=== PATIENT | male | born 1970 | race Caucasian/White ===

== ENCOUNTER 2022-04-26 08:45 | Emergency (ER) | payer OTHER, SELFPAY ==
[2022-04-26 08:47] VITALS: BP 161/75; PULSE 71; RESP 18; TEMP 36.6; O2SAT 100; BMI 33.7
--- NOTE | 2022-04-26 08:52 | ED.RN ---
DR. KRUEGER INFORMED OF PT SX OF ALTERED LOC. PER PT STILL NOT ACTING RIGHT. MD REPORTS PT WILL BE SEEN.
--- NOTE | 2022-04-26 09:00 | EX.ED.DYSGE1 ---
HPI History of Present Illness Chief Complaint: Alt LOC Informant: patient and spouse/S.O. Onset/Context/Timing Onset: Today Context: Sudden Onset Timing: Continuous and Lasts (30 minutes) Quality: Unresponsive Location: Generalized Worsened by: Stress Relieved by: Nothing Narrative Narrative: Patient presents with syncopal episode that occurred this morning. Patient was laying on the kitchen floor. states patient was unresponsive for approximately 30 minutes. states patient has been under a lot of stress recently. Patient states this came on suddenly. Patient admits to some chest pain and palpitations. Patient denies any shortness of breath or cough. Patient denies any nausea or vomiting. Patient denies any headaches or weakness. [facility] Medical History TIA (transient ischemic attack) Home Medications atorvastatin 10 mg tablet (Lipitor) 10 mg PO DAILY 04/26/22 [History Last Taken Unknown] coenzyme Q10 100 mg capsule (CoQ-10) 0 mg PO DAILY 04/26/22 [History Last Taken Unknown] Allergy/AdvReac Type Severity Reaction Status Date / Time No Known Allergies Allergy Verified 04/26/22 08:46 Social History Smoking Status: Current every day smoker tobacco type: cigarettes ROS ROS ED Constitutional Constitutional ED: Denies chills or fever(s) Eyes Eyes: Denies blurry vision or change in vision ENT ENT ED: Denies rhinorrhea or sore throat Cardiovascular Cardiovascular: Reports chest pain and palpitations Respiratory/Chest Respiratory/Chest: Denies cough or dyspnea Gastrointestinal Gastrointestinal: Denies nausea or vomiting Genitourinary Genitourinary ED: Denies dysuria or hematuria Musculoskeletal Musculoskeletal: Reports neck pain; Denies back pain Integumentary Denies abscess or rash Neurologic Neurologic: Denies headache(s) or weakness Allergic/Immunologic Allergic/Immunologic ED: Denies mouth swelling or urticaria EXAM Physical Exam Const Vital Signs: 04/26/22 08:47 04/26/22 09:25 04/26/22 10:11 Temperature 97.9 F Temperature Source Temporal Pulse Rate 71 65 Respiratory Rate 18 18 Respiratory Effort Normal Respiratory Pattern Normal Blood Pressure 161/75 H 144/90 H Blood Pressure Mean 103 108 Pulse Ox 100 97 Oxygen Delivery Method Room Air Room Air 04/26/22 11:27 Temperature Temperature Source Pulse Rate 65 Respiratory Rate 16 Respiratory Effort Respiratory Pattern Blood Pressure 138/88 H Blood Pressure Mean 104 Pulse Ox 97 Oxygen Delivery Method Room Air Positive well nourished and well developed General Appearance ED: well developed and NAD HEENT Reports moist mucous membranes Neck supple and no JVD Resp normal respiratory effort and clear to auscultation bilaterally Cardio regular rate, regular rhythm and no murmurs GI normal to inspection, nondistended, normoactive bowel sounds and non-tender Palpation: soft Extremity normal to inspection General Extremety ED: Negative for edema or tenderness General Extremity: Negative for edema Neuro CN's II-XII intact bilaterally and no sensory deficits noted Neuro Narrative: Is a wake and alert and answers questions appropriately. Patient is somewhat somnolent on examination however. Sensorium / Orientation: alert Motor Exam: general weakness Psych mental status grossly normal Skin no rashes or lesions noted MDM MDM MDM Narrative Medical decision making narrative: Patient was given IV fluids. EKG was obtained. On my interpretation, it showed a normal sinus rhythm with a rate of 64. ND interval, QRS interval, and QTc intervals were all normal. [place] was normal. There are no acute ST or T wave changes. CBC was within normal limits. Comprehensive metabolic profile was within normal limits. Glucose was normal. PT was INR and PTT were within normal limits. Lactate was normal. High-sensitivity troponin was normal at 6. 2-hour repeat high-sensitivity troponin was also normal at 6. Arterial blood gas was obtained and was within normal limits. CT scan of the brain was obtained. There is no acute intracranial abnormality. This was interpreted by the radiologist and reviewed by myself. Portable 1 view chest x-ray was obtained. On my interpretation, lung [place] are clear. There is normal cardiac silhouette. Bony thorax is normal. There is no acute process noted. Radiologist also interpreted the x-ray and agrees. COVID-19 rapid antigen was obtained and was negative. Influenza A and influenza B antigens were obtained and were negative. Patient is more awake and alert. Patient knows where he is at, the day, date, year. Patient wants to go home. Patient was instructed to drink plenty of fluids. Patient was instructed to follow-up with his primary care physician in 5 to 7 days for reevaluation. Patient understood and was agreeable with the plan. All questions were answered. Lab Data Attestation: I reviewed the patient's lab results. Labs: Laboratory Results - last 24 hr 04/26/22 04/26/22 04/26/22 08:45 08:45 08:45 WBC 5.6 RBC 5.17 Hgb 15.1 Hct 42.8 MCV 82.8 MCH 29.2 MCHC 35.3 RDW Std Deviation 38.6 RDW Coeff of Dickson 12.8 Plt Count 191 MPV 8.6 Immature Gran % (Auto) 0.400 Neut % (Auto) 60.4 Lymph % (Auto) 25.9 [place] % (Auto) 11.0 H Eos % (Auto) 1.8 Baso % (Auto) 0.5 Absolute Neuts (auto) 3.4 Absolute Lymphs (auto) 1.44 Nucleated RBC % 0 PT 13.2 INR 1.0 APTT 26.7 Sodium 139 Potassium 3.6 Chloride 108 H Carbon Dioxide 25.0 Anion Gap 6 BUN 11 Creatinine 0.89 Estim Creat Clear Calc 103.41 Est GFR (MDRD) Af Amer 116 Est GFR (MDRD) Non-Af 96 BUN/Creatinine Ratio 12.4 Glucose 129 H Lactic Acid Calcium 8.3 L Total Bilirubin 0.40 AST 15 ALT 27 Alkaline Phosphatase 62 Troponin I High Sens 6 Total Protein 6.4 Albumin 3.6 Globulin 2.8 Albumin/Globulin Ratio 1.3 04/26/22 04/26/22 09:15 11:22 WBC RBC Hgb Hct MCV MCH MCHC RDW Std Deviation RDW Coeff of Dickson Plt Count MPV Immature Gran % (Auto) Neut % (Auto) Lymph % (Auto) [place] % (Auto) Eos % (Auto) Baso % (Auto) Absolute Neuts (auto) Absolute Lymphs (auto) Nucleated RBC % PT INR APTT Sodium Potassium Chloride Carbon Dioxide Anion Gap BUN Creatinine Estim Creat Clear Calc Est GFR (MDRD) Af Amer Est GFR (MDRD) Non-Af BUN/Creatinine Ratio Glucose Lactic Acid 1.4 Calcium Total Bilirubin AST ALT Alkaline Phosphatase Troponin I High Sens 6 Total Protein Albumin Globulin Albumin/Globulin Ratio ABG Data ABG results: ABG 04/26/22 09:33 Specimen Type ART Sample Site R Radial pH 7.39 Bicarbonate Actual 24.0 Total CO2 25 Base Excess -1 O2 Saturation 95 O2 % 21 ABG pCO2 39.4 ABG pO2 77 Kevin Test Positive O2 Delivery Device Room Air Radiography Chest X-Ray - ED: 1 View, Read by ED Physician, Read by Radiologist and No Acute Disease Diagnostic Testing: Clinical Impression(s) from Imaging Studies Brain CT 04/26/22 09:04 IMPRESSION: No acute intracranial process. Electronically Signed: Andie Sparks MD at 10:00 EST , Chest X-Ray 04/26/22 09:53 IMPRESSION: No radiographic evidence of acute cardiopulmonary disease. Electronically Signed: Andie Sparks MD at 10:02 EST , EKG Initial EKG: Attestation: I personally reviewed and interpreted this EKG as follows: Interpretation: Sinus Rhythm (64) and No Acute Injury Pattern Prior EKG tracings: not available for review Prior: No Prior Discharge Plan Triage Chief Complaint: Alt LOC ED Provider: Cipriano Dowd Dx/Rx/DC Orders Clinical Impression: Syncope, Confusion Instructions: ED Fainting, Uncertain Cause Prescriptions: No Action atorvastatin [Lipitor] 10 mg Tablet 10 mg PO DAILY coenzyme Q10 [CoQ-10] 100 mg Capsule 0 mg PO DAILY Rx Instructions: UNSURE OF DOSAGE. Primary Care Provider: Poncho Finney Referrals: Poncho Finney MD [Primary Care Provider] - 3-5 Days NOT,DEFINED [Non-Staff] - Disposition Disposition: Home, Self Care
--- NOTE | 2022-04-26 09:04 | CT_ITS ---
INDICATION: Syncope EXAMINATION: CT BRAIN - CT Head or Brain W/O Contrast Injection TECHNIQUE: Multiple axial images were obtained of the head without intravenous contrast. A radiation dose optimization technique was used for this scan. IV Contrast dosage and agent: None. COMPARISON: FINDINGS: BRAIN PARENCHYMA: No intra- or extra-axial hemorrhage. No evidence of acute infarct. No intracranial mass or mass effect. There is preservation of the [place]/white matter interface. Posterior fossa structures are unremarkable. CSF SPACES: Appropriate for age. No hydrocephalus. Basal cisterns are patent. CALVARIUM, SKULL BASE, PARANASAL SINUSES AND MASTOID AIR CELLS: Clear. No discrete lytic or blastic abnormalities. ORBITS: Both globes, extraocular muscles, optic nerves and retrobulbar fat appear unremarkable. CT/Brain/Head without Contrast IMPRESSION: No acute intracranial process. Electronically Signed: Andie Sparks MD at 10:00 EST ,
--- NOTE | 2022-04-26 09:05 | EKG12_ITS ---
Test Reason : ALT LOC Blood Pressure : / mmHG Vent. Rate : 064 BPM Atrial Rate : 064 BPM P-R Int : 170 ms QRS Dur : 082 ms QT Int : 404 ms P-R-T Axes : 068 011 029 degrees QTc Int : 416 ms Normal sinus rhythm Normal ECG Confirmed by DEBI WILLIAMSON, YANIQUE ([id number]), editor & co founder REGIS GLYNN ([id number]) on 04/27/2022 12:51:51 PM Referred By: FABY Confirmed By:YANIQUE CARRERA MD
[2022-04-26] MEDS: 0.9% Normal Saline 1,000 ML 1000 ML IV (09:14)
[2022-04-26 09:22] LABS: Absolute Lymphocyte Count 1.44 X10^3/uL (0.83-4.51); Absolute Neutrophil Count 3.4 X10^3/uL (2.0-7.7); Basophil# 0.03 X10^3/uL; Basophil% 0.5 % (0-1); Eosinophils% 1.8 % (0-5); Hematocrit 42.8 % (40-54); Hemoglobin 15.1 g/dL (13.0-16.5); Lymphocyte # 1.44 X10^3/ul (0.83-4.51); Lymphocyte % 25.9 % (19-41); Mean Corp Hgb Conc 35.3 g/dL (32-36); Mean Corpuscular Hgb 29.2 pg (27.0-32.0); Mean Corpuscular Volume 82.8 fL (80-94); Mean Platelet Vol. 8.6 fl (6.2-12.0); Monocyte# 0.61 X10^3/uL; NRBC Flagged by Analyzer 0 % (0-5); Neutrophil # 3.37 X10^3/uL (2.7-7.7); Neutrophil % 60.4 % (47-70); Platelet Count 191 K/mm3 (150-450); RBC Distribution Width CV 12.8 % (11.6-14.6); RBC Distribution Width SD 38.6 fl (35.1-43.9); Red Blood Count 5.17 M/mm3 (4.6-6.2); White Blood Count 5.6 K/mm3 (4.4-11.0)
[2022-04-26 09:25] LABS: Prothrombin Time (Protime)PT. 13.2 SECONDS (11.7-14.9)
[2022-04-26 09:27] LABS: Partial Thromboplast Time 26.7 Seconds (24.1-36.2)
[2022-04-26 09:41] LABS: ALB/GLOB Ratio 1.3 RATIO (0.9-2.4); AST(SGOT) 15 U/L (15-37); Alanine Aminotransfer ALT/SGPT 27 U/L (16-61); Albumin, Serum 3.6 g/dL (3.2-5.0); Alkaline Phosphatase 62 U/L (45-117); Anion Gap 6 (5-15); BUN 11 mg/dL (7-18); BUN/Creat Ratio 12.4 RATIO (10-20); Calcium,Total 8.3 mg/dL (8.5-10.1); Chloride 108 mmol/L (98-107); Creatinine, Serum 0.89 mg/dL (0.70-1.30); EST Glomerular Filtration Rate 96 mL/min (>60); Est Glom Filt Rate - Afr Amer 116 mL/min (>60); Estimated Creatinine Clearance 103.41 ml/min; Globulin 2.8 g/dL (2.2-4.2); Glucose 129 mg/dL (74-106); Potassium 3.6 mmol/L (3.5-5.1); Protein, Total 6.4 g/dL (6.4-8.2); Sodium Level 139 mmol/L (136-145); Troponin-I HS (w/2H Reflex) 6 pg/mL (3.0-78.0)
[2022-04-26 09:41] LABS: Allen Test Positive; Base Excess -1 mmol/L (-2 to +2); Blood Gas Specimen Type ART; FI02 21; O2 Delivery Device Room Air; PO2 77 mmHG (75-100); SITE R Radial; SO2 95 % (95-99); Total Carbon Dioxide 25 mmol/L; pCO2 39.4 mmHg (35-45); pH 7.39 (7.35-7.45)
[2022-04-26 09:52] LABS: Lactic Acid 1.4 mmol/L (0.4-1.9)
--- NOTE | 2022-04-26 09:53 | RAD_ITS ---
INDICATION: Syncope EXAMINATION/TECHNIQUE: X-RAY - XR Chest 1 View COMPARISON: None. FINDINGS: LINES/DEVICES: None. LUNGS: No consolidation, edema or effusion. No pneumothorax. MEDIASTINUM AND CARDIOVASCULAR STRUCTURES: Cardiac silhouette not enlarged. Central airways and mediastinal contour are unremarkable. BONES AND SOFT TISSUES: Unremarkable. RAD/Chest 1 View (Portable) IMPRESSION: No radiographic evidence of acute cardiopulmonary disease. Electronically Signed: Andie Sparks MD at 10:02 EST ,
[2022-04-26 10:11] VITALS: BP 144/90; PULSE 65; RESP 18; O2SAT 97
[2022-04-26 11:12] LABS: Reflex Troponin-HS? (from REC) Y
[2022-04-26 11:27] VITALS: BP 138/88; PULSE 65; RESP 16; O2SAT 97
[2022-04-26 11:44] LABS: Troponin-I HS 6 pg/mL (3.0-78.0)
[2022-04-26 12:48] VITALS: BP 127/84; PULSE 64; RESP 17
== END 2022-04-26 12:53 | disposition home or self-care (01) ==
PROVIDERS: Emergency Provider Emergency Medicine; PCP Family Medicine; Visit Provider Emergency Medicine
DX: R55 Syncope and collapse (principal); R41.0 Disorientation, unspecified; R05.9 Cough, unspecified; Z20.822 Contact with and (suspected) exposure to COVID-19; R00.2 Palpitations; F17.210 Nicotine dependence, cigarettes, uncomplicated; Z79.899 Other long term (current) drug therapy; Z86.73 Personal history of transient ischemic attack (TIA), and cerebral infarction without residual deficits
CPT/HCPCS: 36600; 70450; 71045; 80053; 82803; 83605; 84484; 85025; 85610; 85730; 87428; 93005; 99285; A4216